=== PATIENT | male | born 1995 | race Hispanic/Latino ===

== ENCOUNTER 2021-08-26 10:02 | Emergency (ER) | payer BC, SELFPAY ==
--- NOTE | 2021-08-26 10:03 | ED.EYEPROB ---
HPI - Eye Problem General Chief complaint: Eye Problems Stated complaint: right eye painful Time Seen by Provider: 08/26/21 10:12 Source: patient and RN notes reviewed Mode of arrival: ambulatory Limitations: no limitations History of Present Illness HPI Narrative: 26-year-old male presents to the [facility] with a couple of weeks of foreign body feeling in his right eye. Denies any visual changes. States his eyes been watering. No crusting of the eye. Denies any trauma to the eye. chief complaint: eye pain and eye redness Onset (ago): week(s) Related Data Allergies Allergy/AdvReac Type Severity Reaction Status Date / Time No Known Allergies Allergy Verified 08/26/21 10:18 Review of Systems Review of Systems: All systems reviewed & are unremarkable except as noted in HPI and below Constitutional: Constitutional: Reports no additional constitutional complaints, Denies chills and Denies fever(s) Eyes: Eyes: Reports as per HPI, Denies blurry vision, Denies exophthalmos, Denies change in vision, Denies eye discharge, Denies loss of vision and Denies eye pain ENT: Reports system reviewed and no additional complaints, except as documented Cardiovascular: Cardiovascular: Reports no additional cardiovascular complaints and Denies chest pain Respiratory: Respiratory: Reports no additional respiratory complaints and Denies cough Gastrointestinal: Gastrointestinal: Reports no additional gastrointestinal complaints and Denies abdominal pain Musculoskeletal: Musculoskeletal: Reports no additional musculoskeletal complaints Integumentary/Breasts: Skin/Breast: Reports system reviewed and no additional complaints, except as docu Neurologic: Reports system reviewed and no additional complaints, except as documented Psychiatric: Psychiatric: Reports no additional psychiatric complaints Allergic/Immunologic: Allergic/Immunologic: Reports no additional allergic/immunologic complaints [facility] Past Medical History Medical History (Updated 08/26/21 @ 11:47 by Erica Chanel) No significant medical problems Surgical History Surgical History (Updated 08/26/21 @ 11:44 by Erica Chanel) No significant past surgical history Social History Social History (Updated 08/26/21 @ 11:44 by Erica Chanel) Gender identity (if verbalized by the patient): Male Comments At the time of my signature, I reviewed and agree with the nursing past medical, surgical, social, and family history. There is no relevant family history pertinent to the patient complaint. Exam Const: General: no acute distress Nutritional Appearance: well nourished Orientation/consciousness: patient oriented x3 Limitations: altered mental status HENMT: Head: normal to inspection Ears: external ears normal Eyes: Visual Canas: normal visual canas by confrontation Alignment and Position: alignment normal Periorbital: periorbital findings normal Eyelids: eyelid abnormality right upper eyelid (Stye) erythema; with no swelling and nontender Conjunctivae: conjunctival abnormality right conjunctival injection (Erythema) Sclera: sclerae normal Cornea: corneas abnormal on the right (Redness) fluorescein used; Negative for abrasion, no contact lens present, without edema, with no foreign body noted and without ulcerations and fluorescein used Pupils: Equal, round and reactive pupils present Direct Ophthalmoscopy: normal light reflex and no photophobia Other: No hyphema Neck: Neck: normal visual inspection, no lymphadenopathy and no meningeal signs Chest: Chest palpation & inspection: normal inspection of the chest Resp: Effort & Inspection: normal respiratory effort Auscultation: clear to auscultation bilaterally Cardio: Rate: regular rate Rhythm: regular rhythm Back/Spine/Pelvis: Back: no CVA tenderness Skin: General skin exam: normal color Rashes: no rashes Wounds: no wounds Neuro: General: patient oriented x3, moves all extremities, no meningeal s
[2021-08-26 10:13] VITALS: BP 140/80; PULSE 72; RESP 16; TEMP 36.4; O2SAT 100
== END 2021-08-26 10:32 | disposition home or self-care (01) ==
PROVIDERS: Emergency Provider Nurse Practitioner
DX: H10.9 Unspecified conjunctivitis (principal); H00.011 Hordeolum externum right upper eyelid
CPT/HCPCS: 99213; A9270; G0463

== ENCOUNTER 2023-07-17 10:15 | Outpatient (CLI) | payer OTHER, SELFPAY ==
--- NOTE | ~2023-07-17 | MR_ITS ---
MRI of the right calf CLINICAL HISTORY: Pain TECHNIQUE: Axial T1-weighted and STIR images, coronal T1-weighted and STIR images, and sagittal STIR images were performed. FINDINGS: There is orthopedic fixation hardware at the proximal tibia with associated susceptibility artifact. Otherwise, remaining bone marrow signals are unremarkable. No acute fracture or bone marrow edema seen. No abnormal T1 marrow signal identified. There is fluid interposed between the medial head of the gastrocnemius, and medial soleus, consistent with plantaris tendon rupture. There is additional probable minimal strain of the inferior aspect of the medial gastrocnemius muscle. Remaining musculature is unremarkable. No other fluid collection or mass lesion seen. Visualized tendons otherwise intact. IMPRESSION: Findings consistent with plantaris tendon rupture. Additional minimal strain of the inferior aspect of the medial gastrocnemius muscle belly. Reviewed, dictated and finalized at location [facility] IMPRESSION: Findings consistent with plantaris tendon rupture. Additional minimal strain of the inferior aspect of the medial gastrocnemius mu scle belly.
== END 2023-07-17 10:16 ==
PROVIDERS: PCP Physician Assistant; Visit Provider Physician Assistant
DX: M79.661 Pain in right lower leg (principal)
CPT/HCPCS: 73718